=== PATIENT | female | born 1995 | race Caucasian/White ===

== ENCOUNTER → 2017-05-16 09:52 | Emergency (ER) | payer OTHER ==
[~2017-05-16 09:52] MED LIST: Morphine INJ* 4 MG/ML 1 ML CARPUJECT IV ONE; NS 0.9% 1000 ML* 1,000 ML IV SCH; Ondansetron INJ* 2 MG/ML VIAL IV ONE; Sulfamethox/Trimethoprim DS 800/160* TAB PO ONE
[2017-05-16 11:18] LABS: Hematocrit 41 % (35-47); Hemoglobin 13.6 g/dl (12.0-16.0); Mean Corpuscular HGB Conc 33 g/dl (31-36); Mean Corpuscular Hemoglobin 29 pg (27-31); Mean Corpuscular Volume 86 fL (80-97); Mean Platelet Volume 7 um3 (7.4-10.4); Red Blood Count 4.75 10^6/ul (4.0-5.4); Red Cell Distribution Width 13 % (10.5-15); White Blood Count 15.2 10^3/ul (3.5-10.8)
--- NOTE | 2017-05-16 11:23 | RAD ---
INDICATION: Right upper quadrant pain. COMPARISON: Comparison is made with a prior CT of the abdomen and pelvis from April 27, 2015. TECHNIQUE: Multiple real-time images of the right upper quadrant were obtained. FINDINGS: The gallbladder appear normal. No gallbladder wall thickening or pericholecystic fluid is present. No intra or extrahepatic ductal distention is present. The common bile duct measured 0.4 cm in diameter. The liver is normal in size without significant focal abnormality. The pancreas is partially obscured by overlying bowel gas. The visualized portion appears normal. No ductal distention is present. The right kidney is normal in size without evidence for hydronephrosis. IMPRESSION: NEGATIVE EXAM.
[2017-05-16 11:50] LABS: ALT 10 U/L (7-52); AST 18 U/L (13-39); Albumin 4.5 g/dL (3.2-5.2); Alkaline Phosphatase 25 U/L (34-104); Anion Gap 12 mmol/L (2-11); Blood Urea Nitrogen 16 mg/dL (6-24); CO2 Carbon Dioxide 21 mmol/L (22-32); Calcium 9.7 mg/dL (8.6-10.3); Chloride 101 mmol/L (101-111); EGFR African American 111.2 (>60); EGFR Non-African American 86.4 (>60); Globulin 2.8 g/dL (2-4); Glucose 187 mg/dL (70-100); Potassium 3.6 mmol/L (3.5-5.0); Sodium 134 mmol/L (133-145); Total Protein 7.3 g/dL (6.4-8.9)
[2017-05-16 12:11] LABS: Urine Bilirubin Negative (Negative); Urine Nitrite Negative (Negative)
[2017-05-16 12:12] LABS: Urine Glucose 1+(50 mg/dL) (Negative)
[2017-05-16 12:21] LABS: Urine Bacteria 2+ (Absent)
[2017-05-16 13:04] VITALS: BP 102/59
--- NOTE | 2017-05-16 18:22 | ED ---
Abdominal Pain/Female - HPI Summary HPI Summary: 21 y.o female with 3 hours history of abdominal pain, vomiting, nausea. no fever, + chills no reent new or bad food eaten, no ETOH use, h/o abdominal pain ~ 2 years ago patient states was simliar. No bowel complaints, no sick contacts. no prior episodes recent, no recent antibiotic use. student at [employer], meds- control, adderall. - History of Current Complaint Chief Complaint: EDAbdPain Stated Complaint: ABD PAIN/VOMITTING Time Seen by Provider: 05/16/17 10:34 Hx Obtained From: Patient, Family/[facility] - friend, mother Hx Last Menstrual Period: on OCP ?: No Onset/Duration: Sudden Onset, Lasting Hours Timing: Constant Severity Initially: Moderate Severity Currently: Moderate Pain Intensity: 1 Pain Scale Used: 0-10 Numeric Allergies/Adverse Reactions: Allergies Allergy/AdvReac Type Severity Reaction Status Date / Time No Known Allergies Allergy Verified 04/27/15 09:39 PMH/Surg Hx/FS Hx/Imm Hx Previously Healthy: Yes - Immunization History Date of Tetanus Vaccine: Up to date Date of Influenza Vaccine: Fall 2013 Immunizations Up to Date: Yes Infectious Disease History: No Infectious Disease History: Denies: Traveled Outside the [place] in Last 30 Days - Social History Alcohol Use: Occasionally Substance Use Type: Reports: None Smoking Status (MU): Never Smoked Tobacco Review of Systems Positive: Chills, Fatigue Positive: Abdominal Pain, Vomiting, Nausea Positive: Weakness All Other Systems Reviewed And Are Negative: Yes Physical Exam Triage Information Reviewed: Yes Vital Signs On Initial Exam: Initial Vitals Temp Pulse Resp BP Pulse Ox 98 F 86 20 122/78 100 05/16/17 10:01 05/16/17 10:01 05/16/17 10:01 05/16/17 10:01 05/16/17 10:01 Vital Signs Reviewed: Yes Appearance: Positive: Well-Appearing, No Pain Distress, Well-Nourished Skin: Positive: Warm, Skin Color Reflects Adequate Perfusion Head/Face: Positive: Normal Head/Face Inspection Respiratory/Lung Sounds: Positive: Clear to Auscultation, Breath Sounds Present Cardiovascular: Positive: Normal, RRR, Pulses are Symmetrical in both Upper and Lower Extremities, S1, S2 Abdomen Description: Positive: No Organomegaly, Soft, Other: - tender over epigastric region, close to mcmurphys point with deep palpation. no liver enlargement. Negative: CVA Tenderness (R), CVA Tenderness (L), Hepatomegaly, Peritoneal Signs - ri Bowel Sounds: Positive: Present Musculoskeletal: Positive: Normal, Strength/ROM Intact Neurological: Positive: Normal, Sensory/Motor Intact, Alert, Oriented to Person Place, Time Psychiatric: Positive: Normal - [place] Coma Scale Coma Scale Total: 15 Diagnostics - Vital Signs Vital Signs Temp Pulse Resp BP Pulse Ox 05/16/17 13:02 98.4 F 75 16 102/59 100 05/16/17 11:39 19 05/16/17 10:01 98 F 86 20 122/78 100 - Laboratory Lab Results: Lab Results 05/16/17 05/16/17 05/16/17 Range/Units 11:00 11:00 11:35 WBC 15.2 H (3.5-10.8) 10^3/ul RBC 4.75 (4.0-5.4) 10^6/ul Hgb 13.6 (12.0-16.0) g/dl Hct 41 (35-47) % MCV 86 (80-97) fL MCH 29 (27-31) pg MCHC 33 (31-36) g/dl RDW 13 (10.5-15) % Plt Count 293 (150-450) 10^3/ul MPV 7 L (7.4-10.4) um3 Neut % (Auto) 91.7 H (38-83) % Lymph % (Auto) 4.9 L (25-47) % [place] % (Auto) 2.8 (1-9) % Eos % (Auto) 0 (0-6) % Baso % (Auto) 0.6 (0-2) % Absolute Neuts (auto) 13.9 H (1.5-7.7) 10^3/ul Absolute Lymphs (auto) 0.7 L (1.0-4.8) 10^3/ul Absolute Monos (auto) 0.4 (0-0.8) 10^3/ul Absolute Eos (auto) 0 (0-0.6) 10^3/ul Absolute Basos (auto) 0.1 (0-0.2) 10^3/ul Absolute Nucleated RBC 0.01 10^3/ul Nucleated RBC % 0 Sodium 134 (133-145) mmol/L Potassium 3.6 (3.5-5.0) mmol/L Chloride 101 (101-111) mmol/L Carbon Dioxide 21 L (22-32) mmol/L Anion Gap 12 H (2-11) mmol/L BUN 16 (6-24) mg/dL Creatinine 0.84 (0.51-0.95) mg/dL Est GFR ( Amer) 111.2 (>60) Est GFR (Non-Af Amer) 86.4 (>60) BUN/Creatinine Ratio 19.0 (8-20) Glucose 187 H (70-100) mg/dL Calcium 9.7 (8.6-10.3) mg/dL Total Bilirubin 0.90 (0.2-1.0) mg/dL AST 18 (13-39) U/L ALT 10 (7-52) U/L Alkaline Phosphatase 25 L (34-104) U/L Total Protein 7.3 (6.4-8.9) g/dL Albumin 4.5 (3.2-5.2) g/dL Globulin 2.8 (2-4) g/dL Albumin/Globulin Ratio 1.6 (1-3) Urine Color [place] Urine Appearance Cloudy Urine pH 6 (5-9) Ur Specific [place] 1.035 H (1.010-1.030) Urine Protein 1+(30 mg/dl) H (Negative) Urine Ketones 2+ H (Negative) Urine Blood 1+ H (Negative) Urine Nitrate Negative (Negative) Urine Bilirubin Negative (Negative) Urine Urobilinogen Negative (Negative) Ur Leukocyte Esterase 1+ H (Negative) Urine WBC (Auto) 1+(6-10/hpf) H (Absent) Urine RBC (Auto) Trace(0-2/hpf) (Absent) Ur Squamous Epith Cells Present H (Absent) Urine Bacteria 2+ H (Absent) Urine Glucose 1+(50 mg/dl) H (Negative) Result Diagrams: 05/16/17 11:00 05/16/17 11:00 Lab Statement: Any lab studies that have been ordered have been reviewed, and results considered in the medical decision making process. Abdominal Pain Fem Course/Dx - Course Course Of Treatment: RUQ US negative. + elevated WBC, UA + for UTI, awaiting likily infectious gastritis, however elevate urine protein, glucose with elevated glucose at ER. Discussed with DR. Shah. patient tolerating fluids , crackers, D/C to home with mother, close follow up at [place] for glucose abnorm, mother aware, blodo work given. - Diagnoses Differential Diagnosis: Positive: ACS, Bowel Obstruction, Constipation, Diverticulitis, , Renal Colic, Urinary Tract Infection Provider Diagnoses: Gastritis Discharge - Discharge Plan Condition: Fair Disposition: HOME Prescriptions: Ondansetron ODT TAB* [Zofran 4 MG Odt TAB*] 4 mg PO Q8H PRN #15 tab.odt PRN Reason: Nausea Sulfamethox/Trimethoprim DS* [Bactrim DS 800/160 TAB*] 1 tab PO BID #6 tab Sulfamethox/Trimethoprim DS* [Bactrim DS 800/160 TAB*] 1 tab PO BID #6 tab Patient Education Materials: Gastritis (ED), Hyperglycemia, Non-Diabetic (ED) Referrals: [facility] [Medical Doctor] - Paola Zamarripa MD [Primary Care Provider] - Additional Instructions: - Follow up with Nisa for repeat blood work, urine testing for elevated glucose, urine glucose within 2-3 days - Zofran for nausea - Tylenol for pain - bactrim for UTI as directed - Increase fluid intake.
== END | disposition home or self-care (01) ==
LOC: ED 09:52
DX: K29.70 Gastritis, unspecified, without bleeding (principal)
CPT/HCPCS: 36415; 76705; 80053; 81003; 81015; 84702; 85025; 87086; 96360; 96374; 96375; 99282; A9270-GY; J2270; J2405